=== PATIENT | female | born 2000 | race African-American/Black ===

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

== ENCOUNTER 2021-04-20 04:33 | Emergency (ER) | payer OTHER ==
[~2021-04-20] VITALS: Ht 154.9 cm; Wt 93.9 kg
[2021-04-20 04:52] VITALS: BP 114/75
--- NOTE | 2021-04-20 04:55 | NUR ---
DR. HENDRIX EXAMINED PT IN TRIAGE
[2021-04-20] MEDS ORDERED: DEXAMETHASONE 4 MG/ML VIAL IM ONE (05:05)
--- NOTE | 2021-04-20 06:16 | NUR ---
PT CLEARED FRO DISCHARGE BY DR. HENDRIX. PT UNABLE TO FOUND IN LOBBY OR OUTSIDE. PT CALLED ON PERSONAL PHONE WITH NO ANSWER. PT LEFT FACILITY WITHOUT DISCHARGE INSTRUCTIONS.
--- NOTE | 2021-04-20 07:49 | NUR ---
PT WENT TO ER REHABILITATION AIDE AND STATED THAT SHE HAS BEEN WAITING IN THE LOBBY THIS ENTIRE TIME AND NEVER RECEIVED D/C PAPERWORK. EXPLAINED TO PT THAT SHE WAS CALLED WITH NO ANSWER PER NOTES. DISCHARGE PAPERWORK GIVEN TO PT AND SIGNED AT THIS TIME.
== END 2021-04-20 06:16 | disposition home or self-care (01) ==
LOC: MED 04:33
DX: J02.9 Acute pharyngitis, unspecified (principal); R09.89 Other specified symptoms and signs involving the circulatory and respiratory systems; R51.9 Headache, unspecified; Z79.899 Other long term (current) drug therapy
CPT/HCPCS: 87081; 96372; 99283; J1100

== ENCOUNTER 2022-01-07 08:49 | Emergency (ER) | payer OTHER ==
[~2022-01-07] VITALS: Ht 162.6 cm; Wt 79.4 kg
[2022-01-07 08:52] VITALS: BP 111/68
[2022-01-07] MEDS ORDERED: ERYT5OIN58 OP (09:26)
[2022-01-07 09:49] VITALS: BP 114/65
--- NOTE | 2022-01-07 09:51 | NUR ---
Patient discharged with v/s stable. Written and verbal after care instructions given and explained. Patient alert, oriented and verbalized understanding of instructions. Ambulatory with steady gait. All questions addressed prior to discharge. ID band removed. Patient advised to follow up with PMD. Rx of erythromycin given. Patient educated on indication of medication including possible reaction and side effects. Opportunity to ask questions provided and answered.
== END 2022-01-07 09:49 | disposition home or self-care (01) ==
LOC: MED 08:49
DX: H10.89 Other conjunctivitis (principal); B96.89 Other specified bacterial agents as the cause of diseases classified elsewhere
CPT/HCPCS: 99281; 99283

== ENCOUNTER 2023-01-06 14:27 | Emergency (ER) | payer OTHER ==
[~2023-01-06] VITALS: Ht 154.9 cm; Wt 94.8 kg
[~2023-01-06 14:27] MED LIST changes: +ERYT5OIN58 OP
[2023-01-06 14:56] VITALS: BP 114/71; PULSE 118; RESP 20; TEMP 98.4; O2SAT 95
[2023-01-06 16:43] LABS: FLU A ANTIGEN negative (NEGATIVE); FLU B ANTIGEN NEGATIVE (NEGATIVE)
[2023-01-06] MEDS ORDERED: ACET-10509 PO (17:17)
[2023-01-06] MEDS ORDERED: CEPH-588 PO (17:17)
[2023-01-06 17:24] VITALS: BP 112/71; PULSE 88; RESP 20; TEMP 98; O2SAT 96
== END 2023-01-06 17:24 | disposition home or self-care (01) ==
LOC: MED 14:27
DX: J06.9 Acute upper respiratory infection, unspecified (principal); N39.0 Urinary tract infection, site not specified; Z79.899 Other long term (current) drug therapy; Z20.822 Contact with and (suspected) exposure to COVID-19
CPT/HCPCS: 81002; 81025; 99283